=== PATIENT | male | born 1930 | race Caucasian/White ===

== ENCOUNTER 2017-08-01 09:27 | Outpatient (CLI) | payer MEDICARE, BC ==
--- NOTE | 2017-08-01 11:35 | CT ---
CT ABDOMEN AND PELVIS WITH AND WITHOUT IV CONTRAST: INDICATIONS: History of prostate cancer. COMPARISON: 07/24/2009 FINDINGS: There are calcified granuloma involving the lower lobes. No focal hepatic lesion is evident. The spleen is within normal limits. The pancreas and adrenal glands are normal appearing. There are bilateral renal cysts. No renal or ureteral calculus is evident. No hydronephrosis is demonstrated. There are severe calcifications of the abdominal aorta. The prostate is enlarged, measuring 6.6 cm. There is a bladder wall diverticula seen at the left asp ect of the bladder body, measuring 2 cm. No gross urothelial lesion is identified. No definite enlarged lymph nodes are evident. No definite acute osseous abnormality is evident. IMPRESSION: 1. No acute abnormality. 2. No evidence for regional or distal metastatic disease within the abdomen or pelvis. 3. Prostate enlargement. 4. Bladder diverticula. 5. Bilateral renal cysts. POS: [facility]
--- NOTE | 2017-08-01 14:58 | NM ---
RADIONUCLIDE BONE SCAN: HISTORY: Prostate cancer. Restaging. COMPARISON: 12/29/15. FINDINGS: Heterogeneous uptake involves each shoulder, knee, and hip. No other areas of abnormal uptake involv e the skeleton. Focal area of uptake to the right of the bladder has the appearance of a diverticulu m that is unchanged in appearance from the previous study. IMPRESSION: No scintigraphic evidence of osseous metastatic disease. POS: [facility]
== END 2017-08-01 09:28 | disposition home or self-care (01) ==
LOC: CT 09:27
PROVIDERS: ATTEND Urology
DX: C79.82 Secondary malignant neoplasm of genital organs (principal); C61 Malignant neoplasm of prostate; N40.0 Benign prostatic hyperplasia without lower urinary tract symptoms; N32.3 Diverticulum of bladder; N28.1 Cyst of kidney, acquired
CPT/HCPCS: 74178; 78306; 82565; A9503; 36415; 80048; 84153

== ENCOUNTER 2018-04-03 08:23 | Emergency (ER) | payer MEDICARE, BC ==
[2018-04-03] MEDS ORDERED: Labetalol HCl 100 MG/20 ML VIAL ONE (08:51)
[2018-04-03 09:06] LABS: #Eosinphils 0.1 thou/uL (0.0-0.7); #Lymphocytes 1.3 thou/uL (1.20-3.40); #Monocytes 0.5 thou/uL (0.11-0.59); #Neutrophils 4.5 thou/uL (1.40-6.50); %Basophils 0.4 % (0.0-1.0); %Eosinophils 1.8 % (0.0-10.0); %Monocytes 8.3 % (0.0-10.0); %Neutrophils 69.5 % (42.0-75.0); Hemoglobin 15.3 g/dL (14.0-18.0); Mean Corpuscular HGB CONC 32.3 g/dL (32.0-36.0); Mean Corpuscular Hemoglobin 29.9 pg (27.0-31.0); Mean Corpuscular Volume 92.5 fL (78.0-98.0); Mean Platelet Volume 8.6 fL (7.4-10.4); Platelet Count 206 thou/uL (130-400); RBC Distribution Width 12.6 % (11.5-14.5); Red Blood Cell (RBC) Count 5.11 mill/uL (4.70-6.10); White Blood Cell (WBC) Count 6.5 thou/uL (4.8-10.8)
[2018-04-03 09:22] LABS: ALT (SGPT) 19 U/L (8-55); AST (SGOT) 17 U/L (5-34); Albumin 3.9 g/dL (3.4-4.8); Alkaline Phosphatase 91 U/L (40-150); Anion Gap 14 mmol/L (10-20); BUN (Urea Nitrogen) 18 mg/dL (8.4-25.7); Bilirubin, Total 1.3 mg/dL (0.2-1.2); CK (CPK) 60 U/L (30-200); Calc. Creatinine Clearance 0 mL/min (70-130); Calcium 9.7 mg/dL (7.8-10.44); Carbon Dioxide 24 mmol/L (23-31); Chloride 104 mmol/L (98-107); Estimated GFR-MDRD 70; Globulin 3.2 g/dL (2.4-3.5); Glucose 116 mg/dL (83-110); Lipase 39 U/L (8-78); Magnesium 1.8 mg/dL (1.6-2.6); Potassium 3.7 mmol/L (3.5-5.1); Protein, Total 7.1 g/dL (5.8-8.1); Sodium 138 mmol/L (136-145)
[2018-04-03 09:26] LABS: CKMB 1.6 ng/mL (0-6.6)
[2018-04-03 10:04] LABS: Troponin I Less than 0.010 ng/mL (< 0.028)
--- NOTE | 2018-04-03 10:16 | RAD ---
UPRIGHT PORTABLE CHEST ONE VIEW: HISTORY: An 88-year-old male with a history of chest pain, heart racing, and ears ringing. FINDINGS: Monitor leads overly the chest. Heart size is normal. Lungs are clear of acute process. There appe ar to be some small, old granuloma calcifications. IMPRESSION: 1. No acute intrathoracic disease. 2. Small, old granuloma calcifications. 3. Atherosclerosis of the aorta. POS: [facility]
== END 2018-04-03 11:10 | disposition home or self-care (01) ==
LOC: ERS 08:23
DX: R00.2 Palpitations (principal)
CPT/HCPCS: 71045; 80053; 82550; 82553; 83690; 83735; 85025; 93005; 96374

== ENCOUNTER 2018-08-28 08:28 | Outpatient (CLI) | payer MEDICARE, BC ==
--- NOTE | 2018-08-28 12:24 | CT ---
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 COMPARISON: 08/01/2017 FINDINGS: A moderate-sized right pleural effusion has developed in the interim, with adjacent atelectatic crowley es. The liver, pancreas, and adrenal glands are normal. No calcified gallstones are seen. Calcified gra nulomas are again noted in the spleen. Bilateral renal cysts are again seen. No calculi are noted i n the kidneys, ureters, or urinary bladder. No hydroureteronephrosis is noted on either side. The p rostate is enlarged. The small bowel loops are not abnormally dilated. No free air, free fluid, or lymphadenopathy is see n in the abdomen or pelvis. There are vascular calcifications without evidence of aneurysmal dilatat ion of the abdominal aorta. Bladder diverticula are again seen. There is sigmoid diverticulosis. D egenerative changes are present in the spine. No osteolytic or osteoblastic lesions are seen. IMPRESSION: 1. Interval development of moderate right-sided pleural effusion, with adjacent atelectatic change. 2. No evidence of metastatic disease in the abdomen or pelvis. POS: OFF
--- NOTE | 2018-08-28 12:39 | NM ---
NUCLEAR MEDICINE BONE SCAN WHOLE BODY: (Skeletal scintigraphy) DATE: 08/28/2018 HISTORY: 80-year-old male with prostate cancer. TECHNIQUE: IV injection of technetium 99m-MDP: 30.6 mCi 3 hour delayed whole body skeletal scintigraphy in anterior and posterior views. FINDINGS: There are no foci of asymmetrically increased uptake that are particularly suspicious for bone metast asis. Small foci of asymmetrically increased uptake at right AC joint, medial aspect of right knee, and lef t ankle, consistent with osteoarthrosis. IMPRESSION: 1. No compelling evidence of skeletal metastasis. 2. Osteoarthrosis of certain regions.
[2018-08-28] MEDS ORDERED: Iopamidol 370 76% 50 ML VIAL FS ONE (16:26)
[2018-08-28] MEDS ORDERED: Iopamidol 370 76% 100 ML VIAL ONE (16:26)
== END 2018-08-28 08:29 | disposition home or self-care (01) ==
LOC: CT 08:28
PROVIDERS: ATTEND Urology
DX: C61 Malignant neoplasm of prostate (principal); J90 Pleural effusion, not elsewhere classified; M19.90 Unspecified osteoarthritis, unspecified site
CPT/HCPCS: 74178; 78306; 82565; A9503; Q9967

== ENCOUNTER 2018-09-01 11:53 | Emergency (ER) | payer MEDICARE, BC ==
[2018-09-01 13:01] LABS: #Lymphocytes 0.6 thou/uL (1.20-3.40); #Monocytes 0.7 thou/uL (0.11-0.59); #Neutrophils 5.7 thou/uL (1.40-6.50); %Basophils 0.2 % (0.0-1.0); %Eosinophils 0.6 % (0.0-10.0); %Monocytes 9.2 % (0.0-10.0); %Neutrophils 81.1 % (42.0-75.0); Hemoglobin 11.8 g/dL (14.0-18.0); Mean Corpuscular HGB CONC 30.9 g/dL (32.0-36.0); Mean Corpuscular Hemoglobin 26.9 pg (27.0-31.0); Mean Corpuscular Volume 87.2 fL (78.0-98.0); Mean Platelet Volume 7.4 fL (7.4-10.4); Platelet Count 300 thou/uL (130-400); RBC Distribution Width 14.5 % (11.5-14.5); Red Blood Cell (RBC) Count 4.38 mill/uL (4.70-6.10)
[2018-09-01 13:37] LABS: ALT (SGPT) 31 U/L (8-55); AST (SGOT) 28 U/L (5-34); Alkaline Phosphatase 84 U/L (40-150); Anion Gap 12 mmol/L (10-20); BUN (Urea Nitrogen) 14 mg/dL (8.4-25.7); Bilirubin, Total 0.5 mg/dL (0.2-1.2); CK (CPK) 101 U/L (30-200); Calc. Creatinine Clearance 0 mL/min (70-130); Calcium 9.1 mg/dL (7.8-10.44); Carbon Dioxide 27 mmol/L (23-31); Chloride 103 mmol/L (98-107); Estimated GFR-MDRD 85; Globulin 2.9 g/dL (2.4-3.5); Glucose 115 mg/dL (83-110); Potassium 4.6 mmol/L (3.5-5.1); Protein, Total 5.9 g/dL (5.8-8.1); Sodium 137 mmol/L (136-145)
== END 2018-09-01 16:13 | disposition home or self-care (01) ==
LOC: ERS 11:53
DX: J90 Pleural effusion, not elsewhere classified (principal); F41.9 Anxiety disorder, unspecified; Z79.899 Other long term (current) drug therapy
CPT/HCPCS: 36415; 80053; 82550; 83880; 84484; 85025; 93005

== ENCOUNTER 2018-09-11 07:29 | Day surgery (SDC) | payer MEDICARE, BC ==
--- NOTE | 2018-09-11 08:59 | OP ---
DATE OF PROCEDURE: 09/11/2018 PROCEDURE PERFORMED: Right thoracentesis. PREOPERATIVE DIAGNOSIS: Right pleural effusion. POSTOPERATIVE DIAGNOSIS: Right pleural effusion. ANESTHESIA: 1% lidocaine without epinephrine. DESCRIPTION OF PROCEDURE: Informed consent was obtained prior to the procedure. The patient understood the risks involved including bleeding, infection, external lung puncture, and agreed to proceed. His Xarelto was held 48 hours prior to the procedure. The patient was placed in the sitting position. A time-out was taken and his right hemothorax was marked as right. Ultrasound was used to confirm entry site, which was at the lateral scapular line approximately at 5th and 6th interspace. After the effusion was defined by ultrasound, the area was cleansed with chlorhexidine and draped sterilely. 1% lidocaine was used to anesthetize the entry site. A Frgi-H-Eikeajth catheter was inserted in the pleural space and approximately 800 mL of brownish red pleural fluid was removed and sent for appropriate studies. Postoperative x-ray is pending. Job ID: [id number]
--- NOTE | 2018-09-11 09:03 | RAD ---
Portable frontal chest radiograph: 09/11/2018 COMPARISON: 08/30/2018 HISTORY: Evaluate chest following thoracentesis FINDINGS: No pneumothorax is evident on either side. Left lung is clear. There is atherosclerotic javy cification of the aortic arch. There is a questionable mass in the suprahilar region on the right measuring 2.3 cm, not well charact erized on portable imaging. Blunting of the costophrenic angle suggests a small right pleural effusion. IMPRESSION: Small right pleural effusion with no evidence for pneumothorax. Question right hilar mass . This could be better assessed via chest CT or at a minimum, 2 views of the chest. CODE T
[2018-09-11 09:09] LABS: BF Color Red; Body Fluid Source Thoracentesis Fluid; Clarity Cloudy/Turbid (Clear); RBC Background Count 0.002; Tube # EDTA
[2018-09-11 09:11] LABS: RBC Count-Automated 54000 /cumm; WBC/NonHematic-Auto 2310 /cumm
[2018-09-11 09:18] LABS: Pleural Fluid, Protein 3.4 g/dL
[2018-09-11 12:02] LABS: BF Segmented Neutrophils 1 %; Cell Count Non Hematic 50 %; Lymphocytes 49 %
== END 2018-09-11 09:05 | disposition home or self-care (01) ==
LOC: SDC 07:29
PROVIDERS: ATTEND Internal Medicine Critical Care Medicine
PROC: 0W993ZZ Drainage of Right Pleural Cavity, Percutaneous Approach (ICD-10-PCS; principal; 2018-09-11)
PROC: BB4BZZZ Ultrasonography of Pleura (ICD-10-PCS; 2018-09-11)
DX: J90 Pleural effusion, not elsewhere classified (principal); I48.2 Chronic atrial fibrillation; I10 Essential (primary) hypertension; G47.33 Obstructive sleep apnea (adult) (pediatric); C61 Malignant neoplasm of prostate; M19.90 Unspecified osteoarthritis, unspecified site; Z79.899 Other long term (current) drug therapy
CPT/HCPCS: 32554; 71045; 82150; 82945; 83615; 83986; 84157; 84478; 85060; 87070; 87116; 87205; 87206; 88112; 88305; 88313; 88341; 88342; 89051

== ENCOUNTER 2018-09-22 13:35 | Outpatient (CLI) | payer MEDICARE, BC ==
--- NOTE | 2018-09-22 19:20 | PET ---
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 Exam requested for initial staging. Patient also has a history of prostate cancer. TECHNIQUE: PET scan with CT attenuation correction is performed from the base of the brain through the proximal thighs following intravenous administration of 11.6 millicuries of 15-fluorodeoxyglucose in the right antecubital fossa. COMPARISON: None. CORRELATION: CT abdomen and pelvis and whole body bone scan of 08/28/18. FINDINGS: There is intense FDG uptake in the right superior medial mass with an SUV of 19. There is a hypermet abolic mass that involves the anterior chest wall and the lung parenchyma of the right upper lobe wit h an SUV of 13.3. There are pleural based hypermetabolic foci of uptake in the right peripheral upper lobe with an SUV of 5.6, right mediastinal pleura with an SUV of 5 and right inferior anterior pleural extension ante rior to the liver with SUVs of 7.4 and 7.1 respectively. No rama hypermetabolism is seen in the hilar regions, axillae, cervical or abdominal or pelvic lymph nodes. No hypermetabolic liver, adrenal, or skeletal lesions are identified. There is physiologic activity in the GI and tracts and the visualized portions of the brain. The CT scan used for attenuation correction demonstrates a moderate sized right pleural effusion and bilateral renal cysts, enlarged prostate. IMPRESSION: Findings are consistent with malignancy/metastatic disease predominantly in the chest. POS: [facility]
== END 2018-09-22 13:36 | disposition home or self-care (01) ==
LOC: PET 13:35
PROVIDERS: ATTEND Internal Medicine Hematology & Oncology
DX: C45.9 Mesothelioma, unspecified (principal)
CPT/HCPCS: 78815; A9552

== ENCOUNTER 2018-10-07 15:41 | Outpatient (CLI) | payer MEDICARE, BC ==
--- NOTE | 2018-10-07 16:01 | RAD ---
2 views of the chest: 10/07/2018 COMPARISON: 09/11/2018 HISTORY: Dyspnea, shortness of breath FINDINGS: There is atherosclerotic calcification of the aortic arch. There is no discrete pneumothora x seen on either side. There is atherosclerotic calcification of the aortic arch. There is a vague subtle suprahilar mass on the right there is increased density in the right paratrac heal region with deviation of the trachea to the right suggesting underlying mass lesion. There is a small/moderate pleural effusion on the right, increased in size when compared to the 2018 examination. IMPRESSION: Subtle right suprahilar mass. Increased density in the right paratracheal region suggests underlying mass lesion in this region as well. These findings are better assessed on recent PET/CT performed 09/22/2018. There is a small/moderate sized pleural effusion on the right which has increase d in size when compared to the most recent prior examination.
== END 2018-10-07 15:42 | disposition home or self-care (01) ==
LOC: RAD 15:41
PROVIDERS: ATTEND Thoracic Surgery (Cardiothoracic Vascular Surgery)
DX: R07.9 Chest pain, unspecified (principal); R91.8 Other nonspecific abnormal finding of lung field; J90 Pleural effusion, not elsewhere classified
CPT/HCPCS: 71046

== ENCOUNTER 2018-10-08 10:39 | Outpatient (CLI) | payer MEDICARE, BC ==
[2018-10-08 17:46] LABS: Hemoglobin 10.7 g/dL (14.0-18.0); Mean Corpuscular HGB CONC 31.2 g/dL (32.0-36.0); Mean Corpuscular Hemoglobin 26.4 pg (27.0-31.0); Mean Corpuscular Volume 84.7 fL (78.0-98.0); Mean Platelet Volume 7.4 fL (7.4-10.4); Platelet Count 260 thou/uL (130-400); Red Blood Cell (RBC) Count 4.05 mill/uL (4.70-6.10); White Blood Cell (WBC) Count 7.5 thou/uL (4.8-10.8)
[2018-10-08 18:34] LABS: Anion Gap 16 mmol/L (10-20); BUN (Urea Nitrogen) 20 mg/dL (8.4-25.7); Calc. Creatinine Clearance 0 mL/min (70-130); Carbon Dioxide 24 mmol/L (23-31); Chloride 100 mmol/L (98-107); Estimated GFR-MDRD 73; Glucose 116 mg/dL (83-110); Potassium 3.7 mmol/L (3.5-5.1); Sodium 136 mmol/L (136-145)
--- NOTE | 2018-10-09 21:25 | EKG ---
Test Reason : Blood Pressure : / mmHG Vent. Rate : 081 BPM Atrial Rate : 081 BPM P-R Int : 160 ms QRS Dur : 096 ms QT Int : 376 ms P-R-T Axes : 073 050 064 degrees QTc Int : 436 ms Normal sinus rhythm Normal ECG When compared with ECG of 01-SEP-2018 14:05, T wave inversion no longer evident in Inferior leads Confirmed by Geneva CARR ([id number]) on 10/09/2018 9:25:37 PM Referred By: RUTH Confirmed By:Geneva CARR
== END 2018-10-08 10:40 | disposition home or self-care (01) ==
LOC: LABBT 10:39
PROVIDERS: ATTEND Thoracic Surgery (Cardiothoracic Vascular Surgery)
DX: Z01.818 Encounter for other preprocedural examination (principal); C45.9 Mesothelioma, unspecified
CPT/HCPCS: 80048; 85027; 93005; 93010

== ENCOUNTER 2018-10-09 05:20 | Day surgery (SDC) | payer MEDICARE, BC ==
[2018-10-08 17:28] VITALS: BMI 23.2
[2018-10-09] MEDS ORDERED: Lidocaine 1% (PF) 30 ML VIAL ONE (06:31)
[2018-10-09] MEDS ORDERED: Midazolam HCl 2 mg/2 ml Vial ONE (06:48)
[2018-10-09] MEDS ORDERED: Bupivacaine/Epinephrine 0.25% 30 ML VIAL ONE (06:48)
[2018-10-09] MEDS ORDERED: Fentanyl 100 MCG/2 ML VIAL ONE (06:48)
--- NOTE | 2018-10-09 08:04 | RAD ---
FRONTAL RADIOGRAPH CHEST: 10/09/2018 COMPARISON: 10/07/2018 HISTORY: Chest tube placement, recent surgery. FINDINGS: There is a new right-sided chest tube. Previously noted right pleural fluid no longer visualized. T here is a vague suprahilar mass on the right, measuring 2.6 cm in transverse dimension. No pneumothorax is seen. IMPRESSION: 1. Interval placement of a right-sided chest tube with resolution of previously noted right pleural effusion. 2. No pneumothorax. 3. Vague suprahilar mass on the right, better evaluated on prior PET scan. Transcribed Date/Time: 10/09/2018 8:08 AM
[2018-10-09] MEDS ORDERED: PROPOFOL 200 MG/20 ML VIAL ONE (11:06)
[2018-10-09] MEDS ORDERED: Lidocaine 1% PF 5 ML VIAL ONE (11:06)
--- NOTE | 2018-10-09 14:23 | OP ---
DATE OF PROCEDURE: 10/09/2018 PREOPERATIVE DIAGNOSIS: Malignant right pleural effusion. PROCEDURE PERFORMED: PleurX catheter. ANESTHESIA: Local with sedation. FINDINGS: 900 mL of fluid. DESCRIPTION OF PROCEDURE: After prepping and draping, lidocaine and Marcaine with epi were used to infiltrate the skin. Pleural space was accessed with a needle, and fluid was obtained. Wire was inserted. Tunnel created between 2 incisions, and catheter was brought through the tunnel. Peel-away sheath was then introduced without difficulty. Catheter was advanced through the sheath, connected to suction, and wounds were secured. Dressing was applied. Job ID: [id number]
== END 2018-10-09 09:17 | disposition home or self-care (01) ==
LOC: SDC 05:20
PROVIDERS: ATTEND Thoracic Surgery (Cardiothoracic Vascular Surgery)
PROC: 0JH63XZ Insertion of Tunneled Vascular Access Device into Chest Subcutaneous Tissue and Fascia, Percutaneous Approach (ICD-10-PCS; principal; 2018-10-09)
DX: J91.0 Malignant pleural effusion (principal); C45.9 Mesothelioma, unspecified; I10 Essential (primary) hypertension; I48.91 Unspecified atrial fibrillation; Z85.46 Personal history of malignant neoplasm of prostate; Z91.048 Other nonmedicinal substance allergy status; Z79.01 Long term (current) use of anticoagulants; Z79.899 Other long term (current) drug therapy
CPT/HCPCS: 32550; 71045; C1729; J0690; J2001; J2250; J2704; J3010

== ENCOUNTER 2018-10-30 09:53 | Outpatient (CLI) | payer MEDICARE, BC ==
--- NOTE | 2018-10-30 10:16 | RAD ---
2 VIEW CHEST: Date: 10/30/18 INDICATION: Mesothelioma. COMPARISON: 10/07/18 and 10/09/18. FINDINGS: Right chest tube. Right side effusion and right basilar atelectasis. Left lung remains clear and unch anged. No pneumothorax apparent. IMPRESSION: Right-sided effusion appears to have increased since 10/09/18. Right chest tube is unchanged in posit ion. POS: OFF
== END 2018-10-30 09:54 | disposition home or self-care (01) ==
LOC: RAD 09:53
PROVIDERS: ATTEND Thoracic Surgery (Cardiothoracic Vascular Surgery)
DX: C45.9 Mesothelioma, unspecified (principal); J90 Pleural effusion, not elsewhere classified
CPT/HCPCS: 71046

== ENCOUNTER 2018-12-11 09:10 | Outpatient (CLI) | payer MEDICARE, BC ==
[2018-12-11 10:05] LABS: Estimated GFR-MDRD - POC Greater than 90
--- NOTE | 2018-12-11 13:12 | CT ---
CT OF CHEST PERFORMED WITH INTRAVENOUS CONTRAST ENHANCEMENT: 12/11/18 HISTORY: Mesothelioma. Patient recently completed radiation. Also has a history of prostate cancer. COMPARISON: PET scan study of 09/22/18. Since that previous examination, there has been placement of a pleural based catheter with almost com plete elimination of the right pleural effusion. Some minimal residual fluid in the right lung base. The upper mediastinal mass located at the level of the great vessels is again demonstrated and displa bill the esophagus and trachea to the left. It measures approximately 3.8 cm as compared to 4.2 cm on the prior exam. I am not certain that this is really a significant change. Right paratracheal node me asures 10 mm in short axis dimension and appears stable. A pleural based mass along the anterior aspe ct of the right upper lobe seen on axial image 43 measures 19 mm in short axis dimension and measured 18 mm on the prior exam. Again, this is not felt to be a significant change. There are pleural crowley es in the right lung base with some mild generalized pleural thickening. Somewhat difficult to direct ly compare this to the previous exam due to the presence of the effusion on the prior study. The left lung is clear of infiltrates and no evidence of any pleural change on the left side. The visualized liver parenchyma shows no focal findings. The spleen is partially visualized. It may b e slightly enlarged. The pancreas and gallbladder regions are unremarkable. Hypodensities involving t he kidneys are most likely cysts. Adrenal glands are normal. Review of osseous structures show no lytic or blastic bone change. IMPRESSION: 1. Interval placement of a pleural catheter within the right lung with marked reduction of the r ight pleural effusion. There is pleural thickening within the right lung base, difficult to compare t o the previous exam given the presence of the effusion on the prior study. 2. Fairly stable appearance to the pleural based mass along the anterior chest wall in the right upper lobe and the upper mediastinal mass located more along the right side of the esophagus. Right paratracheal lymph node also appears stable in appearance. POS: OFF
[2018-12-11] MEDS ORDERED: ISOVUE-370 76%-LOCM 1 ML ONE (16:29)
== END 2018-12-11 09:11 | disposition home or self-care (01) ==
LOC: BICCT 09:10
PROVIDERS: ATTEND Internal Medicine Hematology & Oncology
DX: C45.0 Mesothelioma of pleura (principal); J90 Pleural effusion, not elsewhere classified; J98.59 Other diseases of mediastinum, not elsewhere classified
CPT/HCPCS: 71260; 82565

== ENCOUNTER 2019-01-05 08:36 | Day surgery (SDC) | payer MEDICARE, BC ==
[2019-01-04 12:40] VITALS: BMI 22.6
--- NOTE | 2019-01-05 08:02 | HP ---
HISTORY OF PRESENT ILLNESS: This is an 88-year-old gentleman, diagnosed with mesothelioma, having undergone placement of a PleurX catheter on 10/09/2018. His drainage has never been appreciable and a CAT scan from last month showed no significant pleural effusion and the patient is requesting that the catheter be removed. PAST MEDICAL HISTORY: Otherwise includes atrial fibrillation, for which he takes Xarelto, hypertension, gastroesophageal reflux, and remote diagnosis of prostate cancer. SOCIAL HISTORY: He is a nonsmoker. Retired. MEDICATIONS: Include 1. Xarelto. 2. Crestor. 3. Captopril. 4. Hydrochlorothiazide. 5. Lupron. 6. Bystolic. 7. . 8. Librium. ALLERGIES: HE HAS NO KNOWN ALLERGIES. PHYSICAL EXAMINATION: GENERAL: He is an alert, cooperative gentleman. Most recent weight about 140 pounds. NECK: No carotid bruits. LUNGS: Clear to auscultation. CARDIAC: Reveals a regular rhythm with no murmurs. EXTREMITIES: No edema. PLAN: At this time is for removal of PleurX catheter under local anesthesia. Job ID: [id number]
[2019-01-05] MEDS ORDERED: Lidocaine 1% w/Epinephrine 1:100K 20 ML VIAL ONE (08:58)
[2019-01-05] MEDS ORDERED: Lidocaine 2% w/Epinephrine 1:200K 20 ML VIAL ONE (08:58)
[2019-01-05] MEDS ORDERED: PROPOFOL 200 MG/20 ML VIAL ONE (15:25)
[2019-01-05] MEDS ORDERED: Lidocaine 1% PF 5 ML VIAL ONE (15:25)
--- NOTE | 2019-01-06 14:28 | OP ---
DATE OF PROCEDURE: 01/05/2019 PREOPERATIVE DIAGNOSIS: Nonfunctioning right PleurX catheter. PROCEDURE PERFORMED: Removal. ANESTHESIA: Sedation with local anesthetic. DESCRIPTION OF PROCEDURE: With the patient on the transport bed, he was rotated to his left exposing the area to be prepped and draped. 1% lidocaine was used to infiltrate around the exit site and a hemostat was used to mobilize the catheter. It was then removed without difficulty and a dressing applied. Estimated blood loss was minimal and the patient tolerated the procedure well. Job ID: [id number]
== END 2019-01-05 10:00 | disposition home or self-care (01) ==
LOC: SDC 08:36
PROVIDERS: ATTEND Thoracic Surgery (Cardiothoracic Vascular Surgery)
PROC: 0WPB33Z Removal of Infusion Device from Left Pleural Cavity, Percutaneous Approach (ICD-10-PCS; principal; 2019-01-05)
DX: Z46.82 Encounter for fitting and adjustment of non-vascular catheter (principal); J90 Pleural effusion, not elsewhere classified; C45.9 Mesothelioma, unspecified; I48.91 Unspecified atrial fibrillation; I10 Essential (primary) hypertension; K21.9 Gastro-esophageal reflux disease without esophagitis; Z79.01 Long term (current) use of anticoagulants; Z79.899 Other long term (current) drug therapy; Z91.09 Other allergy status, other than to drugs and biological substances
CPT/HCPCS: J2001; J2704

== ENCOUNTER 2019-01-08 10:05 | Outpatient (CLI) | payer MEDICARE, BC ==
--- NOTE | 2019-01-08 10:31 | RAD ---
EXAM: Chest PA and lateral: HISTORY: Mesothelioma of the pleura. Cough. COMPARISON: 08/30/2018, 10/30/2018 FINDINGS: Heart: Normal cardiac silhouette Aorta: There is sclerosis of the aortic knob Pulmonary vessels: Normal Costophrenic angles: Persistent blunting of the right costophrenic angle. Stable thickening of the mi nor fissure. Lungs: Interstitial opacities in the lung parenchyma likely representing a chronic process. No masses or consolidation. Pneumothorax: No pneumothorax Osseous structures: No osseous abnormalities IMPRESSION: 1. No significant interval change. 2. Chronic changes of the lung parenchyma and right-sided pleural spaces.
== END 2019-01-08 10:06 | disposition home or self-care (01) ==
LOC: BICRAD 10:05
PROVIDERS: ATTEND Internal Medicine Hematology & Oncology
DX: C45.0 Mesothelioma of pleura (principal); R91.8 Other nonspecific abnormal finding of lung field
CPT/HCPCS: 71046

== ENCOUNTER 2019-02-02 15:15 | Observation (INO) | payer MEDICARE, BC ==
--- NOTE | 2019-02-02 16:05 | RAD ---
Exam: Chest one view HISTORY:Increased swelling and pitting edema. Comparison: 10/09/2018 FINDINGS: Cardiac silhouette: Normal Aorta: Atherosclerosis of the aortic knob Pulmonary vessels: Slightly prominent Costophrenic angles: Right greater than left pleural effusions. LUNGS: Right lower lobe parenchymal changes. Pneumothorax: None Osseous abnormalities: None IMPRESSION: 1. Atherosclerosis 2. Mild pulmonary vascular prominence and bilateral pleural effusions. Correlate for congestive heart failure. Parenchymal changes in the right lung base may be due to atelectasis, pneumonia or aspiration. Continued surveillance is recommended.
[2019-02-02 16:25] LABS: #Eosinphils 0.1 thou/uL (0.0-0.7); #Lymphocytes 0.8 thou/uL (1.20-3.40); #Monocytes 0.8 thou/uL (0.11-0.59); %Basophils 0.4 % (0.0-1.0); %Eosinophils 0.6 % (0.0-10.0); %Lymphocytes 9.2 % (21.0-51.0); %Monocytes 9.5 % (0.0-10.0); %Neutrophils 80.2 % (42.0-75.0); Mean Corpuscular HGB CONC 31.2 g/dL (32.0-36.0); Mean Corpuscular Hemoglobin 25.4 pg (27.0-31.0); Mean Corpuscular Volume 81.4 fL (78.0-98.0); Mean Platelet Volume 7.3 fL (7.4-10.4); Platelet Count 362 thou/uL (130-400); RBC Distribution Width 16.9 % (11.5-14.5); Red Blood Cell (RBC) Count 3.94 mill/uL (4.70-6.10); White Blood Cell (WBC) Count 8.7 thou/uL (4.8-10.8)
[2019-02-02 17:03] LABS: ALT (SGPT) 22 U/L (8-55); AST (SGOT) 28 U/L (5-34); Albumin 1.7 g/dL (3.4-4.8); Alkaline Phosphatase 179 U/L (40-110); Anion Gap 12 mmol/L (10-20); BUN (Urea Nitrogen) 24 mg/dL (8.4-25.7); Bilirubin, Total 0.3 mg/dL (0.2-1.2); CK (CPK) 74 U/L (30-200); Calc. Creatinine Clearance 0 mL/min (70-130); Calcium 7.2 mg/dL (7.8-10.44); Carbon Dioxide 23 mmol/L (23-31); Chloride 106 mmol/L (98-107); Estimated GFR-MDRD 80; Globulin 2.8 g/dL (2.4-3.5); Glucose 126 mg/dL (83-110); Potassium 3.6 mmol/L (3.5-5.1); Protein, Total 4.5 g/dL (5.8-8.1); Sodium 137 mmol/L (136-145)
[2019-02-02 18:03] LABS: INR-International Normal Ratio 1.6; PTT 54.3 SEC (22.9-36.1); Prothrombin Time 18.5 SEC (12.0-14.7)
[2019-02-02 18:27] LABS: Free T4 (Free Thyroxine) 0.68 ng/dL (0.70-1.48); Thyroid Stimulating Hormone 3.2669 uIU/mL (0.35-4.94)
[2019-02-02] MEDS ORDERED: Furosemide 40 MG/4 ML VIAL ONE (18:34)
[2019-02-02 20:14] LABS: Bacteria/HPF None Seen HPF (None Seen); Bilirubin Negative (Negative); Blood, Urine 1+ (Negative); Clarity Clear (Clear); Glucose, Urine (Dipstick) 30 mg/dL (Negative); Leukocyte Negative Leu/uL (Negative); Nitrite Negative (Negative); Protein, Urine (Dipstick) 300 mg/dL (Neg-Trace); RBC/HPF 0-3 HPF (0-3); Squamous Epithelial 0-3 HPF (0-3); Urobilinogen Normal mg/dL (Less than 2); WBC/HPF 0-3 HPF (0-3)
[2019-02-02] MEDS ORDERED: Acetaminophen 325 MG TAB PO PRN (20:54)
[2019-02-02] MEDS ORDERED: Senokot S 8.6-50 MG TAB PO PRN (20:54)
[2019-02-02] MEDS: Famotidine 20 MG TAB PO SCH (21:51)
--- NOTE | 2019-02-03 03:19 | HP ---
PRIMARY CARE PHYSICIAN: Dr. Buck. CHIEF COMPLAINT: Bilateral swelling right forearm, bilateral lower legs. HISTORY OF PRESENT ILLNESS: Mr. Elena is a very pleasant 88-year-old male, who reported to be in the emergency room today for evaluation of right arm edema, bilateral leg edema for 3 days. Reports that he called [facility] to send a nurse to check on him and also the patient's physical therapist checked on him today as well and was worried about the patient's symptoms as the swelling has increased. He denied any chest pain, shortness of breath. He denies any orthopnea. The patient reports that he is moving and walking around normally. Denies change to any recent diet. Denies any nausea, vomiting, or diarrhea. Does report a history of prostate cancer, radiation types to the lungs for mesothelioma. Denies chemotherapy. Does deny a history of heart failure. Does report that he is on Xarelto for atrial fibrillation. The patient reports change in bowel movements as he had periods of constipation. Reports that he has used MiraLAX now for the last four days. Chest x-ray in the emergency room showed atherosclerosis, mild pulmonary vascular prominence, and bilateral pleural effusions. LABORATORY DATA: White blood cell count 8.7, hemoglobin 10, hematocrit 32, platelet count 362. Chemistry unremarkable with exception of glucose of 126, calcium 7.2, magnesium 1.8, alkaline phosphatase 179. BNP 286.5. Protein 4.5, albumin 1.7, free T4 of 0.68. Third-generation TSH is 3.26. The patient's symptoms concerning for new onset CHF. The patient admitted to the observation unit for further management. REVIEW OF SYSTEMS: The patient reports recent constipation. Denies abdominal pain, diarrhea, nausea, and vomiting. MUSCULOSKELETAL: Swelling of the right arm, bilateral calves. Denies chest pain, shortness of breath. All other systems reviewed and are negative unless mentioned in the HPI. PAST MEDICAL HISTORY: Pertinent for macular degeneration, atrial fibrillation, eczema, prostate cancer, mesothelioma, radiation in October of 2018. SURGICAL HISTORY: Cataract surgery, cardiac cath, ablation x2, appendectomy, chest tube for mesothelioma which we recently removed. PSYCH HISTORY: Has a history of anxiety. SOCIAL HISTORY: Lives with family. at the [facility]. Denies any alcohol or drug use. No smoking history. ALLERGIES: NEOPRENE. CURRENT MEDICATIONS: 1. Xanax 0.25 mg p.o. at bedtime. 2. Avastin 7.5 mg/kg. 3. Capoten 25 mg p.o. b.i.d. 4. Librium 10 mg p.o. b.i.d. 5. Colace 100 mg p.o. daily. 6. Lupron 3.75 mg. 7. Bystolic 5 mg p.o. at bedtime. 8. Nitrostat 0.4 mg sublingual q.5 minutes as needed. 9. Ditropan 10 mg p.o. daily. 10. MiraLAX 17 g p.o. daily. 11. Polyethylene glycol drops 4 drops in left eye. 12. Zantac 150 mg p.o. p.r.n. 13. Xarelto 20 mg p.o. at bedtime. 14. Crestor 5 mg p.o. daily. 15. Flomax 0.4 mg p.o. daily. PHYSICAL EXAMINATION: VITAL SIGNS: Blood pressure 162/79, pulse is 95, respirations are 16, pO2 sats are 95% on room air. GENERAL: The patient is pain free. He is alert and oriented to person, place, and time. He is in no apparent distress. HEAD: Atraumatic and normocephalic. EYES: Pupils are equal, round, and reactive to light. Extraocular muscles are intact. ENT: Mouth exam is normal. Mucous membranes are moist. NECK: Normal range of motion. Trachea is midline. RESPIRATORY: Chest breath sounds are clear. Chest expansion is equal. CARDIOVASCULAR: Regular rate and rhythm. Heart sounds are normal. ABDOMEN: Nontender. Bowel sounds are heard. BACK: Normal range of motion. No tenderness. EXTREMITIES: Upper extremity, normal range of motion. Motor strength is normal. Sensation intact. Radial pulses are normal. Lower extremity, motor strength is normal. Sensation intact. Pedal pulses are normal. There is diffusely swollen throughout bilateral legs. Range of motion is normal. Motor strength is normal. Sensation intact. Posterior tib-fib pulse is normal. Pedal pulses are normal. NEURO: The patient is oriented to person, place, and time. Speech is normal. SKIN: Warm, dry, and normal in color. PSYCH: Has a normal affect. PLAN/ASSESSMENT: 1. Mild vascular congestion seen on x-ray with bilateral lower leg edema, right arm edema. We will ask Dr. Arriola, who is patient's director external communications to consult to get an echocardiogram. Monitor vital signs. Repeat labs in the morning. Lasix 40 mg daily. 2. History of atrial fibrillation. We will continue the Xarelto. 3. Recent history of constipation. Senokot p.r.n. has been ordered. 4. Gastrointestinal prophylaxis has been started. The patient is on Xarelto for deep venous thrombosis prophylaxis. 5. Hypertension. We will continue home medications. 6. History of prostate cancer. We will restart home medications including Flomax. 7. The patient is a DNAR. This was verified with the patient and family. 8. Hospital course dependent on clinical findings. Job ID: [id number]
[2019-02-03 04:36] LABS: ALT (SGPT) 17 U/L (8-55); AST (SGOT) 18 U/L (5-34); Albumin 1.5 g/dL (3.4-4.8); Alkaline Phosphatase 143 U/L (40-110); BUN (Urea Nitrogen) 23 mg/dL (8.4-25.7); Bilirubin, Total 0.3 mg/dL (0.2-1.2); Calc. Creatinine Clearance 57 mL/min (70-130); Carbon Dioxide 24 mmol/L (23-31); Chloride 107 mmol/L (98-107); Estimated GFR-MDRD 86; Globulin 3.7 g/dL (2.4-3.5); Glucose 103 mg/dL (83-110); Potassium 3.4 mmol/L (3.5-5.1); Protein, Total 5.2 g/dL (5.8-8.1); Sodium 138 mmol/L (136-145)
[2019-02-03 05:32] LABS: #Eosinphils 0.1 thou/uL (0.0-0.7); #Lymphocytes 0.9 thou/uL (1.20-3.40); #Monocytes 0.8 thou/uL (0.11-0.59); #Neutrophils 3.7 thou/uL (1.40-6.50); %Basophils 0.5 % (0.0-1.0); %Eosinophils 2.1 % (0.0-10.0); %Lymphocytes 16.4 % (21.0-51.0); %Monocytes 14.4 % (0.0-10.0); %Neutrophils 66.5 % (42.0-75.0); Hemoglobin 9.8 g/dL (14.0-18.0); Mean Corpuscular HGB CONC 31.9 g/dL (32.0-36.0); Mean Corpuscular Volume 81.6 fL (78.0-98.0); Mean Platelet Volume 7.6 fL (7.4-10.4); Platelet Count 269 thou/uL (130-400); RBC Distribution Width 16.9 % (11.5-14.5); Red Blood Cell (RBC) Count 3.75 mill/uL (4.70-6.10); White Blood Cell (WBC) Count 5.6 thou/uL (4.8-10.8)
[2019-02-03 06:08] LABS: Anion Gap 10 mmol/L (10-20)
[2019-02-03] MEDS ORDERED: Potassium Chloride 20 MEQ TAB PO SCH ×2 (08:15→18:45)
[2019-02-03] MEDS: Famotidine 20 MG TAB PO SCH ×2 (09:36→19:44)
[2019-02-03] MEDS: Furosemide 40 MG/4 ML VIAL SLOW IVP SCH (09:36)
[2019-02-03 12:20] VITALS: BMI 23.8
[2019-02-03] MEDS ORDERED: Polyethylene Glycol OPTH DROP 15 ML BOT L EYE PRN (15:27)
[2019-02-03] MEDS ORDERED: Polyethylene Glycol 3350 17 GM Packet PO PRN (15:27)
[2019-02-03] MEDS: Potassium Chloride 20 MEQ TAB PO SCH (16:58)
[2019-02-03] MEDS ORDERED: Spironolactone 25 MG TAB PO SCH (18:45)
[2019-02-03] MEDS ORDERED: Furosemide 40 MG/4 ML VIAL SLOW IVP SCH (18:45)
--- NOTE | 2019-02-03 19:02 | PRG ---
DATE OF SERVICE: 02/03/2019 SUBJECTIVE: Mr. Elena was brought here for observation with intractable edema in his arms and legs. He has improved to some degree with diuretics since he has been here. He is not having chest pain or pressure. OBJECTIVE: VITAL SIGNS: Blood pressure 138/63, pulse 80 and it is regular. LUNGS: Clear. CARDIAC: Normal S1 and normal S2. ABDOMEN: Soft and nontender. EXTREMITIES: There is [id number] edema in his arms and legs. DIAGNOSTIC DATA: Echocardiogram showed normal left ventricular function with no significant valvular abnormalities. PERTINENT LABORATORY DATA: His protein is very low at 5.2, albumin 1.5. The patient has a history of mesothelioma and prostate cancer. ASSESSMENT: 1. Anasarca, mostly likely primarily related to low protein and albumin. 2. History of atrial fibrillation, maintaining sinus rhythm. 3. Hypertension, controlled. PLAN: Continue the diuretic, although we will probably only be able to moderately diurese him with this level of albumin. Encourage and try to eat as much as possible. Make wish to hold off on Lupron shot, but does have some tendency to worsen enough fluid retention. No other recommendations and we will use furosemide and spironolactone. Job ID: [id number]
[2019-02-03] MEDS: Docusate 100 MG CAP PO SCH (19:44)
[2019-02-03] MEDS ORDERED: FLU VACC TS2019-20(65YR UP)/PF 180 MCG/0.5 ML SYRINGE IM ONE (21:00)
[2019-02-03] MEDS ORDERED: Rivaroxaban 10 MG TAB PO SCH (21:00)
[2019-02-03] MEDS ORDERED: Nebivolol HCl 5 MG TAB PO SCH (21:00)
[2019-02-03 21:15] LABS: Bacteria/HPF None Seen HPF (None Seen); Bilirubin Negative (Negative); Blood, Urine 1+ (Negative); Clarity Clear (Clear); Glucose, Urine (Dipstick) 150 mg/dL (Negative); Leukocyte Negative Leu/uL (Negative); Nitrite Negative (Negative); Protein, Urine (Dipstick) 600 mg/dL (Neg-Trace); Squamous Epithelial 0-3 HPF (0-3); Urobilinogen Normal mg/dL (Less than 2); WBC/HPF 0-3 HPF (0-3)
--- NOTE | 2019-02-03 22:41 | PRG ---
DATE OF SERVICE: 02/03/2019 SUBJECTIVE: An 88-year-old male with mesothelioma, hypertension, and paroxysmal atrial fibrillation, presented to the hospital with generalized anasarca along with shortness of breath. His chest x-ray in the emergency room showed mild pulmonary vascular congestion with bilateral pleural effusion. He was started on IV diuretics. He denies any chest discomfort at this time. Symptomatically, he feels the same. His edema is improving. REVIEW OF SYSTEMS: The patient denies any nausea, vomiting, diarrhea. He still has poor appetite. No new focal deficit. OBJECTIVE: VITAL SIGNS: Temperature 98.1 respirations 18, pulse rate of 80, blood pressure 138/63, and O2 saturation 93% on room air. GENERAL: An 88-year-old male, in no apparent distress, ill-appearing. LUNGS: Showed diminished air entry at bilateral bases. No accessory muscle use. There are scattered rhonchi at bases. No significant rales. HEART: S1, S2 present. Regular rate and rhythm. No rubs or gallops. ABDOMEN: Soft, nontender. Bowel sounds present. No rebound or guarding. EXTREMITIES: 2+ edema in bilateral lower extremities. No calf tenderness. NEUROLOGIC: Grossly nonfocal. Moves all 4 extremities. PSYCHIATRY: Alert, awake, oriented x3. Normal affect. LABORATORY FINDINGS: WBC 5.6 with hemoglobin 9.8, platelet 269. INR 1.6 with PT of 18.5. Potassium 3.4 with BUN 23, creatinine 0.84. Chest x-ray by my review as discussed above. Telemetry monitoring by my review showed sinus rhythm. CURRENT HOME MEDICATIONS: Reviewed. IMPRESSION: 1. Generalized anasarca. 2. Moderate protein-calorie malnutrition. 3. Chronic kidney disease, stage 2. 4. Paroxysmal atrial fibrillation, in sinus rhythm. 5. Hypertension. 6. History of mesothelioma, followed by Dr. Burgos. 7. Macular degeneration. 8. History of prostate cancer. 9. Anxiety. 10. Overactive bladder. 11. Chronic anticoagulation. 12. Benign prostatic hypertrophy. 13. Chronic constipation. 14. Hypokalemia. PLAN: The patient will be monitored overnight. We will continue IV diuretics. The patient was counseled on fluid restriction. We will resume Bystolic, oxybutynin, Xarelto, Crestor, Flomax, Librium, and Xanax. We will recheck electrolytes in a.m. Replace potassium. CODE STATUS: Do not resuscitate. Job ID: [id number]
[2019-02-03] MEDS: ALPRAZolam 0.25 MG TAB PO SCH (23:02)
[2019-02-04 05:54] LABS: Anion Gap 7 mmol/L (10-20); BUN (Urea Nitrogen) 22 mg/dL (8.4-25.7); Calc. Creatinine Clearance 54 mL/min (70-130); Calcium 7.9 mg/dL (7.8-10.44); Carbon Dioxide 27 mmol/L (23-31); Chloride 108 mmol/L (98-107); Estimated GFR-MDRD 83; Glucose 105 mg/dL (83-110); Magnesium 1.6 mg/dL (1.6-2.6); Phosphorus 2.9 mg/dL (2.3-4.7); Potassium 3.9 mmol/L (3.5-5.1); Sodium 138 mmol/L (136-145)
[2019-02-04] MEDS ORDERED: Magnesium Sulfate 4 GM in Sodium Chloride 0.9% 250 ML 250 ML IVPB SCH (07:30)
[2019-02-04] MEDS ORDERED: Spironolactone 25 MG TAB PO SCH ×2 (08:00→17:00)
[2019-02-04] MEDS: ALPRAZolam 0.25 MG TAB PO SCH (08:24)
[2019-02-04] MEDS: Famotidine 20 MG TAB PO SCH (08:24)
[2019-02-04] MEDS: Docusate 100 MG CAP PO SCH (08:26)
[2019-02-04] MEDS: Potassium Chloride 20 MEQ TAB PO SCH (08:26)
[2019-02-04] MEDS: Furosemide 40 MG/4 ML VIAL SLOW IVP SCH (08:26)
[2019-02-04] MEDS ORDERED: Oxybutynin 5 MG TAB PO SCH (09:00)
[2019-02-04] MEDS ORDERED: Tamsulosin HCl 0.4 MG CAP PO SCH (09:00)
[2019-02-04] MEDS ORDERED: Rosuvastatin 5 MG TAB PO SCH (09:00)
[2019-02-04 15:37] VITALS: BP 106/52; TEMP 97.7
[2019-02-05] MEDS ORDERED: Furosemide 20 MG TAB PO SCH (09:00)
--- NOTE | 2019-02-06 00:09 | DIS ---
DATE OF ADMISSION: 02/02/2019 DATE OF DISCHARGE: 02/04/2019 DISCHARGE DISPOSITION: Home. FOLLOWUP: 1. Follow up with primary care physician in 1 week. The patient follows Dr. Burgos. 2. Follow up with Dr. Arriola as scheduled. 3. Outpatient evaluation with Nephrology will be beneficial. 4. Code status do not resuscitate. 5. Basic metabolic profile after 1 week is recommended. Primary care physician advised to follow. DISCHARGE MEDICATIONS: 1. Lasix 20 mg b.i.d. 2. Aldactone 25 mg b.i.d. 3. Captopril was discontinued. All other home medications were left unchanged. INPATIENT CUSTOMER SERVICE ADVISOR: Cardiology, Dr. Arriola. BRIEF HOSPITAL COURSE: The patient is an 88-year-old male with mesothelioma, presented to the hospital with generalized anasarca along with mild shortness of breath. He was monitored on the telemetry unit. He was evaluated by Cardiology, Dr. Arriola, as well. Echocardiogram showed ejection fraction of 55% to 60% with trace mitral regurgitation, trace tricuspid regurgitation, and normal pulmonary artery pressure. He showed good improvement with IV Lasix. His weight came down to 144 pounds from 149 pounds. He was extensively counseled on fluid restriction. He was educated on high-protein diet. He has been cleared by Cardiology for discharge. FINAL DIAGNOSES: 1. Generalized anasarca secondary to moderate protein-calorie malnutrition. 2. Chronic kidney disease, stage 2. 3. Paroxysmal atrial fibrillation, currently in sinus rhythm. 4. History of mesothelioma. 5. Hypertension. 6. History of prostate cancer. 7. Anxiety. 8. Macular degeneration. 9. Overactive bladder. 10. Benign prostatic hypertrophy. 11. Chronic constipation. 12. Hypokalemia, replaced. 13. Chronic anticoagulation. 14. Chronic anemia. PLAN: Plan of care was discussed with the patient in detail. He stated understanding. Job ID: [id number]
== END 2019-02-04 17:39 | disposition home or self-care (01) ==
LOC: ERS 15:15 → 2SW 21:11
PROVIDERS: ADMIT Internal Medicine; ATTEND Internal Medicine
DX: E44.0 Moderate protein-calorie malnutrition (principal); I12.9 Hypertensive chronic kidney disease with stage 1 through stage 4 chronic kidney disease, or unspecified chronic kidney disease; N18.2 Chronic kidney disease, stage 2 (mild); F41.9 Anxiety disorder, unspecified; K59.09 Other constipation; E87.6 Hypokalemia; N40.1 Benign prostatic hyperplasia with lower urinary tract symptoms; N32.81 Overactive bladder; D64.9 Anemia, unspecified; H35.30 Unspecified macular degeneration; I48.0 Paroxysmal atrial fibrillation; Z68.23 Body mass index [BMI] 23.0-23.9, adult; C45.9 Mesothelioma, unspecified; Z79.01 Long term (current) use of anticoagulants; Z79.899 Other long term (current) drug therapy; Z91.048 Other nonmedicinal substance allergy status; Z66 Do not resuscitate
CPT/HCPCS: 71045; 80048; 80053; 81001; 82550; 83735 ×2; 83880; 84100; 84439; 84484; 85025; 85610; 85730; 90662; 93005; 93306; 94760; 96365; 96366; 96376 ×2; 97116 ×2; 97139 ×2; 99285; G0008; G0378 ×4; 36415; 81003; 81015; 84443; 90471; 96374; J1940; J3475; J7050

== ENCOUNTER 2019-02-10 10:29 | Outpatient (CLI) | payer MEDICARE, BC ==
--- NOTE | 2019-02-10 11:59 | RAD ---
TWO VIEW CHEST: HISTORY: Mesothelioma. COMPARISON: 01/08/2019 FINDINGS: Blunting of the right CP angle is again seen, consistent with pleural fluid and/or pleural thickening . There is pleural thickening along the right lateral chest wall, which is stable. Increased intersti tial markings in the right lung appear stable. There are scattered small nodular densities seen throu ghout both lungs, which are stable. Heart and mediastinum are unremarkable with aortic calcification again noted. Degenerative changes in the spine. IMPRESSION: Chest findings are stable from 01/08/2019, as detailed above. POS: [facility]
== END 2019-02-10 10:30 | disposition home or self-care (01) ==
LOC: BICRAD 10:29
PROVIDERS: ATTEND Internal Medicine Hematology & Oncology
DX: C45.0 Mesothelioma of pleura (principal); R91.8 Other nonspecific abnormal finding of lung field
CPT/HCPCS: 36415; 71046; 80053

== ENCOUNTER 2019-02-12 14:04 | Outpatient (CLI) | payer MEDICARE, BC ==
--- NOTE | 2019-02-12 14:47 | ULT ---
BILATERAL LOWER EXTREMITY VENOUS DOPPLER ULTRASOUND: Date: 02/12/19 HISTORY: Bilateral lower extremity edema. TECHNIQUE: Roger scale ultrasound with color flow and spectral Doppler imaging of the deep venous systems of the lower extremities was performed bilaterally. FINDINGS: There is good flow, compression, and augmentation noted in the common femoral, femoral, deep femoral, popliteal, posterior tibial, and greater saphenous veins on either side. IMPRESSION: No evidence of deep venous thrombosis in either lower extremity. POS: [facility]
== END 2019-02-12 14:05 | disposition home or self-care (01) ==
LOC: SCSULT 14:04
PROVIDERS: ATTEND Internal Medicine Nephrology
DX: N18.3 Chronic kidney disease, stage 3 (moderate) (principal); R60.0 Localized edema
CPT/HCPCS: 93970